=== PATIENT | male | born 1965 | race Caucasian/White ===

== ENCOUNTER 2020-04-18 16:52 | Observation (INO) | payer BC, SELFPAY ==
--- NOTE | ~2020-04-18 | CT_ITS ---
EXAMINATION: CT brain wo con INDICATION: Slurred speech and left-sided weakness COMPARISON: None TECHNIQUE: Standard unenhanced head CT. The dose-length product (DLP) was 605.33 mGy-cm. The mA was a djusted according to patient size. Iterative reconstruction technique was employed. FINDINGS: There is no intracranial hemorrhage, acute infarction, or abnormal mass lesion. The ventric les are normal. There is no abnormal mass effect or midline shift. The pan-white matter differentiat ion is normal. The basal cisterns are patent. The orbits are normal. Intracranial calcified cerebral atherosclerosis is noted. The paranasal sinuses, mastoids and calvarium are normal. IMPRESSION: 1. No acute intracranial abnormality. Reviewed, dictated and finalized at location A.
--- NOTE | ~2020-04-18 | MR_ITS ---
EXAMINATION: MR cervical spine wo con EXAM DATE: 04/19/2020 07:40 INDICATION: Neck pain. Left arm weakness. TECHNIQUE: Multi-sequential, multiplanar MR images of the cervical spine were obtained without contra st. Axial T2, axial T2 MERGE sequence. Sagittal T1, T2, T2 fat saturation images also obtained. Th ere is no prior study for comparison. FINDINGS: There is moderate disc disease at C5-6. The vertebral bodies are aligned in the AP dimensi on. There are no suspicious marrow signal abnormalities. The spinal cord signal intensity and intrins ic morphology is normal. The spinal cord signal intensity and intrinsic morphology is normal. Cervica l Paraspinal soft tissue is unremarkable. Level by level evaluation: C2-C3: Disc does not extend beyond the endplate margin. Uncovertebral joint arthropathy: Mild bilateral. Facet joint arthropathy: Moderate to severe left, mild right. Neural foraminal stenosis: No stenosis. Central canal stenosis: No stenosis. C3-C4: Disc does not extend beyond the endplate margin. Uncovertebral joint arthropathy: Mild to moderate right, mild left. Facet joint arthropathy: Mild to moderate bilateral. Neural foraminal stenosis: Mild right. Central canal stenosis: No stenosis. C4-C5: There is a minimal diffuse disc bulge. Uncovertebral joint arthropathy: Mild to moderate bilateral. Facet joint arthropathy: Mild to moderate bilateral. Neural foraminal stenosis: No stenosis. Central canal stenosis: No stenosis. C5-C6: There is a mild diffuse disc bulge. Uncovertebral joint arthropathy: Moderate bilateral. Facet joint arthropathy: Mild to moderate bilateral. Neural foraminal stenosis: Moderate right, mild to moderate left. Central canal stenosis: Mild. C6-C7: There is a minimal diffuse disc bulge. Uncovertebral joint arthropathy: Mild to moderate bilateral. Facet joint arthropathy: Mild bilateral. Neural foraminal stenosis: No stenosis. Central canal stenosis: No stenosis. C7-T1: Disc does not extend beyond the endplate margin. Uncovertebral joint arthropathy: Mild bilateral. Facet joint arthropathy: Mild bilateral. Neural foraminal stenosis: No stenosis. Central canal stenosis: No stenosis. IMPRESSION: 1. Moderate cervical spondylosis at C5-6. Reviewed, dictated and finalized at location A.
--- NOTE | ~2020-04-18 | XR_ITS ---
EXAMINATION: XR chest 1V portable INDICATION: Slurred speech and left-sided numbness TECHNIQUE: Portable AP chest at 1715 hours COMPARISON: None available FINDINGS: The lungs are free of acute opacities. There is no pleural effusion or pneumothorax. The ca rdiomediastinal silhouette is normal. The visualized bones and soft tissues are unremarkable. IMPRESSION: 1. No acute cardiopulmonary abnormality. Reviewed, dictated and finalized at location A.
--- NOTE | ~2020-04-18 | MR_ITS ---
EXAMINATION: MR brain/brain stem wo/w con EXAM DATE: 04/19/2020 07:45 INDICATION: Left-sided hemiparesis. Slurred speech TECHNIQUE: Magnetic resonance imaging (MRI) of the brain/brain stem obtained without contrast. Sagit codie T1, axial diffusion, gradient echo (T2*), T1, T2, FLAIR sequences obtained. Patient was then inj ected with 20 cc intravenous Multihance contrast. Axial and coronal postcontrast T1 weighted sequence s obtained. Correlation is made to yesterday's CTA. FINDINGS: There is acute lacunar infarction in the right basal ganglia. There is no acute hemorrhage seen on the T2*, a hemosiderin sensitive sequence. No intraparenchymal brain mass lesion. There is m ild periventricular and subcortical T2/FLAIR signal hyperintensity, nonspecific but probably related to small vessel ischemic disease (microangiopathy). There is mild prominence of the sulci and ventr icles related to cerebral atrophy. There are no extra-axial collections. Flow voids are seen in th e cerebral arteries on the T2-weighted sequences consistent with their expected patency. The orbits are unremarkable. Soft tissue is unremarkable. There are no areas of abnormal enhancement on the po stcontrast images. IMPRESSION: 1. Acute right basal ganglia lacunar infarction. 2. Chronic age related findings. Reviewed, dictated and finalized at location A.
--- NOTE | ~2020-04-18 | CT_ITS ---
EXAMINATION: CTA brain carotid DATE: 04/18/2020 18:11 INDICATION: Left-sided weakness TECHNIQUE: Computed tomographic angiography (CTA) of the head was performed without and with 100 mL O mnipaque-350 intravenous contrast. CTA of the neck was performed with intravenous contrast. The dose- length product was 1212.07 mGy-cm. Maximum intensity projection and volume rendered 3D-reconstruction s were created by the technologist on a separate workstation. Automated exposure control and iterativ e reconstruction technique were employed. COMPARISON: None. FINDINGS: HEAD CTA: There is no intracranial hemorrhage, acute infarction, or abnormal mass lesion. The ventric les are normal. There is no abnormal mass effect or midline shift. The pan-white matter differentiat ion is normal. The basal cisterns are patent. The orbits are normal. Intracranial calcified cerebral atherosclerosis is noted. The paranasal sinuses, mastoids and calvarium are normal. There is no significant stenosis of the basilar artery or posterior cerebral arteries. There is no si gnificant stenosis of the intracranial internal carotid arteries or the anterior or middle cerebral a rteries. The anterior communicating artery and posterior communicating arteries are normal. There is no aneurysm. NECK CTA: The thyroid gland is unremarkable. The submandibular and parotid glands are symmetric. Ther e is no lymphadenopathy. There are no masses identified. The airway is unremarkable. There are no oss eous abnormalities. The superior mediastinum is unremarkable. Severe spondylosis is noted at C5-6. There is 0% stenosis of the proximal right internal carotid artery relative to normal distal artery l umen diameter (NASCET criteria). There is 0% stenosis of the proximal left internal carotid artery re lative to normal distal artery lumen diameter. IMPRESSION: 1. No acute intracranial abnormality. Normal head CTA. 2. 0% stenosis of the proximal right internal carotid artery relative to normal distal artery lumen d iameter (NASCET criteria). 3. 0% stenosis of the proximal left internal carotid artery relative to normal distal artery lumen di ameter. Reviewed, dictated and finalized at location A. IMPRESSION: 1. No acute intracranial abnormality. Normal head CTA. 2. 0% stenosis of the proximal right internal carotid artery relative to normal distal artery lumen diameter (NASCET criteria). 3. 0% stenosis of the proximal left internal carotid artery relative to normal distal artery lumen diameter.
--- NOTE | 2020-04-18 16:55 | ECG_ITS ---
Measurements Intervals [place] Rate: 83 P: 33 OK: 152 QRS: 33 QRSD: 85 T: 38 QT: 362 QTc: 427 Interpretive Statements SINUS RHYTHM EARLY PRECORDIAL R/S TRANSITION BASELINE WANDER- V2-V5 BORDERLINE ECG Electronically Signed On 04-18-2020 19:31:58 CDT by Addison Hobson D.O.
[2020-04-18 17:02] LABS: Glucose Point of Care 251 (65-105)
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
[2020-04-18 17:07] VITALS: BP 194/120; PULSE 87; RESP 16; TEMP 36.8; O2SAT 96
[2020-04-18 17:12] LABS: Basophils Absolute Auto 0.1 K/mm3 (0.0-0.1); Basophils Percent Auto 1.1 % (0.2-1.2); Eosinophils Absolute Auto 0.2 K/mm3 (0-0.3); Eosinophils Percent Auto 2.3 % (0-4.4); Hematocrit 45.1 % (42.0-52.0); Hemoglobin 15.5 g/dL (14.0-18.0); Immature Granulocyte Absolute 0.02 K/mm3 (0.00-0.031); Immature Granulocyte Percent A 0.3 % (0-0.5); Lymphocytes Absolute Auto 1.59 K/mm3 (0.9-3.2); Lymphocytes Percent Auto 21.1 % (18.3-44.2); Mean Corpuscular HGB Conc 34.4 g/dl (32-36); Mean Corpuscular Hemoglobin 30.9 pg (26-34); Mean Platelet Volume 10.5 fl (7.4-10.4); Monocytes Absolute Auto 0.5 K/mm3 (0.1-0.6); Monocytes Percent Auto 6.1 % (2.6-8.5); Neutrophils Absolute Auto 5.2 K/mm3 (1.3-6.7); Neutrophils Percent Auto 69.1 % (45.5-73.1); Platelet Count Result 216 k/mm3 (150-375); Red Blood Count 5.01 M/mm3 (4.6-6.20); White Blood Count 7.6 K/mm3 (4.5-10.0)
[2020-04-18 17:20] LABS: INR 0.9; Prothrombin Time 11.6 Seconds (11.1-14.7)
[2020-04-18 17:21] LABS: Partial Thromboplastin Time 24.6 SECONDS (22.3-36.8)
[2020-04-18 17:24] LABS: Blood Urea Nitrogen 14 mg/dL (9-20); Calcium 9.4 mg/dL (8.4-10.2); Carbon Dioxide 24 mmol/L (22-30); Chloride 104 mmol/L (98-107); Estimated CRCL calculation 128 ml/min; Estimated Glomerular Filt Rate > 60; Glucose 260 mg/dL (75-110); Potassium 4.1 mmol/L (3.4-5.0); Sodium 135 mmol/L (137-145)
[2020-04-18 17:34] VITALS: BP 165/110; PULSE 77; RESP 16; O2SAT 95
[2020-04-18 17:35] LABS: Troponin I < 0.012 ng/mL (0.000-0.034)
[2020-04-18 18:19] VITALS: BP 171/87; PULSE 72; RESP 19; O2SAT 95
[2020-04-18 19:53] VITALS: BP 138/86; PULSE 74; RESP 18; O2SAT 98
[2020-04-18 20:00] VITALS: PULSE 73; PULSE 74; RESP 18; O2SAT 98
--- NOTE | 2020-04-18 20:09 | ADMGEN ---
This patient, Ed Mcallister, was admitted to Medical Room 342-01. Patient/family oriented to hospital policies and general routines including ID bracelet, bed and alarms, visiting hours, pain management, procedures, bathroom and other care routines, personal items, smoking policy, room service/diet, and visiting hours. Valuables list has been completed. Information on how to activate the Rapid Response Team has been discussed. Patient/Family are encouraged to report perceived risks to care and to ask questions if they do not understand what they are told or what they should do.
[2020-04-18 20:11] VITALS: BP 157/99; PULSE 73; RESP 18; TEMP 36.7; O2SAT 98
[2020-04-18 20:15] VITALS: BMI 38.2
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
[2020-04-19] VITALS (10 sets, daily range): BP systolic 123–152; BP diastolic 73–92; PULSE 64–84; RESP 18; TEMP 36–36.3; O2SAT 93–97
[2020-04-19] MEDS: NICOTINE (*PBKC) 21 MG PATCH 1 PATCH TRANSDERM ×2 (00:31→08:30)
[2020-04-19] MEDS: ASPIRIN 81 MG CHEWABLE TABLET 324 MG PO (00:31)
[2020-04-19 05:54] LABS: Alanine Aminotransferase 24 U/L (4-50); Albumin Level 3.9 g/dL (3.5-5.1); Alkaline Phosphatase 67 U/L (38-126); Aspartate Amino Transferase 19 U/L (17-59); Bilirubin,Total 0.5 mg/dL (0.2-1.3); Blood Urea Nitrogen 11 mg/dL (9-20); Calcium 8.9 mg/dL (8.4-10.2); Carbon Dioxide 27 mmol/L (22-30); Chloride 104 mmol/L (98-107); Cholesterol 244 mg/dL (0-200); Estimated CRCL calculation 144 ml/min; Estimated Glomerular Filt Rate > 60; Glucose 221 mg/dL (75-110); HDL Direct 30 mg/dL; Potassium 3.9 mmol/L (3.4-5.0); Sodium 137 mmol/L (137-145); Triglycerides 233 mg/dL (<150)
[2020-04-19 06:05] LABS: LDL Cholesterol Direct 183 mg/dL
[2020-04-19 06:10] LABS: Hemoglobin A1C 9.8 % (<5.7)
[2020-04-19] MEDS: ASPIRIN 81 MG ENTERIC TABLET PO (08:29)
[2020-04-19] MEDS: AMLODIPINE BESYLATE 5 MG TABLET 10 MG PO (08:30)
[2020-04-19] MEDS: NEBIVOLOL HCL 5 MG TABLET 30 MG PO (08:30)
[2020-04-19] MEDS: INSULIN ASPART (*BKC) 100 UNITS/ML SUB-Q ×2 (08:32→12:23)
[2020-04-19] MEDS: INSULIN GLARGINE (*BKC) 100 UNITS/ML 10 UNITS SUB-Q (08:34)
[2020-04-19] MEDS: ATORVASTATIN 40 MG TABLET 80 MG PO (08:37)
[2020-04-19 08:48] LABS: Glucose Point of Care 254 (65-105)
[2020-04-19] MEDS: lisinopriL 20 MG TABLET 40 MG PO (11:05)
--- NOTE | 2020-04-19 12:10 | PCSTNOTE ---
Bedside swallow evaluation completed. Please see evaluation results for diet and therapy recommendations.
[2020-04-19 12:12] LABS: Glucose Point of Care 232 (65-105)
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
[2020-04-19 17:56] LABS: Glucose Point of Care 162 (65-105)
--- NOTE | 2020-04-19 19:00 | WPDNEURCNPN ---
Assessment and Plan Assessment and plan (1) Cerebrovascular accident (CVA) of right basal ganglia: Code(s): I63.9 - Cerebral infarction, unspecified Status: Acute (2) Neck pain: Code(s): M54.2 - Cervicalgia Status: Acute (3) Tobacco dependence: Code(s): F17.200 - Nicotine dependence, unspecified, uncomplicated Status: Acute (4) Hyperglycemia: Code(s): R73.9 - Hyperglycemia, unspecified Status: Acute (5) Hypercholesterolemia: Code(s): E78.00 - Pure hypercholesterolemia, unspecified Status: Acute (6) Essential hypertension: Code(s): I10 - Essential (primary) hypertension Status: Acute (7) Dysarthria: Code(s): R47.1 - Dysarthria and anarthria Status: Acute (8) Facial paresthesia: Code(s): R20.2 - Paresthesia of skin Status: Acute (9) Other intervertebral disc degeneration, lumbosacral region: Code(s): M51.37 - Other intervertebral disc degeneration, lumbosacral region Status: Acute (10) Obesity (BMI 30-39.9): Code(s): E66.9 - Obesity, unspecified Status: Acute Additional Plan patient will need the PT OT evaluation and most likely an outpatient therapy 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 donovan as an outpatient when he gets discharged from here Consult date: 04/19/20 Time Seen: 18:30 HPI: Ed Mcallister is a 54 year old male who is admitted with left-sided hemiparesis which is stable since he was hospitalized he is obese he has hypertension and also is most likely newly diagnosed diabetic his neurological deficit stable which is [id number] in nature including the face arm the left leg on the left side denies any headache nausea vomiting chest pain shortness of breath The brain MRI conference the evidence of the stroke in the right basal ganglia region and the echocardiogram is pending CTA of the head and neck is unremarkable the patient is on aspirin and atorvastatin Review of Systems Review of Systems: All systems reviewed & are unremarkable except as noted in HPI and below PMFSH Past Medical History Medical History Chronic back pain On opioid therapy. Degenerative disc disease, lumbar Essential hypertension Hypercholesterolemia Obesity (BMI 30-39.9) Osteoarthritis Tobacco dependence Surgical History Surgical History History of tonsillectomy Family History Family History Mother Hypertension Kidney failure Social History Social History Social History: Surrogate decision maker: Zaida Venkatesh, friend. Code status: Full code. Smoking packs per day: 1 Smoking cigarettes per day: 20.0 Years smoked: 38 Smoking pack-years: 38.00 Smoking status: Current every day smoker Tobacco type: cigarettes Alcohol intake: never Substance use: never Additional living arrangements comments: The patient lives alone in his own home in [place]. He is not and has no children. 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 Gender identity (if verbalized by the patient): Male Spiritual care concerns: No Meds Home Medications and Allergies Home Medications Medication Instructions Recorded Confirmed Type amlodipine 10 mg tablet 10 mg PO DAILY #90 tablet 02/06/20 04/18/20 Rx benazepril 40 mg tablet 40 mg PO DAILY #90 tablet 04/06/20 04/18/20 Rx hydrocodone 7.5 mg-love
[2020-04-19 20:30] LABS: Glucose Point of Care 168 (65-105)
[2020-04-20] VITALS (9 sets, daily range): BP systolic 137–194; BP diastolic 92–121; PULSE 63–89; RESP 16–20; TEMP 36.5–36.8; O2SAT 96–98; BMI 38.2
--- NOTE | 2020-04-20 | ECHO_ITS ---
Patient Info Name: Ed Mcallister Age: 54 years : 1965 Gender: Male Ht: 73 in Wt: 289 lbs BSA: 2.65 m2 HR: 75 bpm BP: 137 / 101 mmHg Technical Quality: Fair Exam Date: 04/20/2020 8:43 AM Exam Location: [facility] Patient Status: Outpatient Admit Date: 04/18/2020 Staff Ordering Physician: Ana Lee PA-C Gas Meter Reader: Fidencio Ruiz RDCS, RT Attending Provider: Sara Phillips PA-C Referring Physician: Rosa POOLE; Exam Type: CA echo doppler color flow Study Info Indications I10 - Essential (primary) hypertension Complete two-dimensional, color flow and Doppler transthoracic echocardiogram is performed. Summary 1. Left ventricular chamber dimension is normal. 2. Left ventricular systolic function is normal, estimated at 55-60%. 3. The left ventricular diastolic function is grade I diastolic dysfunction. 4. E/e' 7 is not elevated. 5. Small atheroma in posterior aortic root. Left Ventricle E/e' 7 is not elevated. Left ventricular chamber dimension is normal. Left ventricular systolic function is normal, estimated at 55-60%. The left ventricular diastolic function is grade I diastolic dysfunction. Right Ventricle Right ventricular chamber dimension is normal. Right ventricular systolic function is normal. Left Atria Left atrial chamber dimension is normal. Right Atria Right atrial chamber dimension is normal. Aortic Valve The aortic valve is trileaflet. There is no aortic valve stenosis. There is no aortic valve regurgitation. Pulmonic Valve There is no pulmonic regurgitation. Mitral Valve There is no mitral valve stenosis. There is no mitral valve regurgitation. Tricuspid Valve There is no tricuspid valve regurgitation. Pericardium/Pleural There is no pericardial effusion. Inferior Vena Cava Normal inferior vena cava with >50% collapse upon inspiration consistent with normal right atrial pressure, 5 mmHg. Aorta Small atheroma in posterior aortic root. The aortic root size at the sinus of Valsalva is normal. Left Ventricular Outflow Tract Name Value Normal LVOT 2D LVOT Diameter 2.1 cm LVOT Doppler LVOT Peak Gradient 4 mmHg LVOT Mean Gradient 2 mmHg LVOT VTI 21 cm LVOT VTI/AV VTI Ratio 0.9 LVOT Stroke Volume 77 ml LVOT CO 6.3 l/min LVOT CI 2.4 l/min/m2 Pulmonic Valve Name Value Normal PV Doppler PV Peak Gradient 5 mmHg Mitral Valve Name Value Normal MV Doppler -----
[2020-04-20] MEDS: ACETAMINOPHEN 325 MG TABLET 650 MG PO (05:26)
[2020-04-20 07:53] LABS: Glucose Point of Care 233 (65-105)
[2020-04-20] MEDS: ATORVASTATIN 40 MG TABLET 80 MG PO (08:37)
[2020-04-20] MEDS: AMLODIPINE BESYLATE 5 MG TABLET 10 MG PO (08:37)
[2020-04-20] MEDS: ASPIRIN 81 MG ENTERIC TABLET PO (08:37)
[2020-04-20] MEDS: lisinopriL 20 MG TABLET 40 MG PO (08:38)
[2020-04-20] MEDS: NICOTINE (*PBKC) 21 MG PATCH 1 PATCH TRANSDERM (08:38)
[2020-04-20] MEDS: INSULIN GLARGINE (*BKC) 100 UNITS/ML 10 UNITS SUB-Q (09:53)
[2020-04-20] MEDS: INSULIN ASPART (*BKC) 100 UNITS/ML SUB-Q (09:54)
[2020-04-20] MEDS: NEBIVOLOL HCL 5 MG TABLET 30 MG PO (09:55)
--- NOTE | 2020-04-20 10:26 | WPDNEUROPN ---
Progress Note: A&P Assessment and Plan (1) Cerebrovascular accident (CVA) of right basal ganglia: Code(s): I63.9 - Cerebral infarction, unspecified Status: Acute (2) Neck pain: Code(s): M54.2 - Cervicalgia Status: Acute (3) Tobacco dependence: Code(s): F17.200 - Nicotine dependence, unspecified, uncomplicated Status: Acute (4) Hyperglycemia: Code(s): R73.9 - Hyperglycemia, unspecified Status: Acute (5) Neurological symptoms: Code(s): R29.90 - Unspecified symptoms and signs involving the nervous system Status: Acute (6) Hypercholesterolemia: Code(s): E78.00 - Pure hypercholesterolemia, unspecified Status: Acute (7) Essential hypertension: Code(s): I10 - Essential (primary) hypertension Status: Acute (8) Dysarthria: Code(s): R47.1 - Dysarthria and anarthria Status: Acute (9) Facial paresthesia: Code(s): R20.2 - Paresthesia of skin Status: Acute (10) Left arm weakness: Code(s): R29.898 - Other symptoms and signs involving the musculoskeletal system Status: Acute (11) Other intervertebral disc degeneration, lumbosacral region: Code(s): M51.37 - Other intervertebral disc degeneration, lumbosacral region Status: Acute (12) Obesity (BMI 30-39.9): Code(s): E66.9 - Obesity, unspecified Status: Acute Additional Plan stable will need speech therapy Exam Const: General: cooperative, comfortable and no acute distress Limitations: no limitations HENMT: Head: normal to inspection Face and sinus: normal facial exam Mouth: Yes Normal oral and palatal mucosa present Eyes: General: appearance normal, both eyes and all related structures Neck: Neck: full ROM Resp: Effort & Inspection: normal respiratory effort and able to speak in complete sentences Auscultation: clear to auscultation bilaterally Cardio: Rate: regular rate Rhythm: regular rhythm GI: Auscultation: normal bowel sounds Skin: General skin exam: no rashes or lesions noted Neuro: General: patient oriented x3, gait normal and moves all extremities Cranial nerves: Yes facial symmetry (assymmetrical) and Yes Midline tongue present Cognition (Neuro): normal cognition Gait exam (Neuro): Normal gait present Motor exam (neuro): Abnormal motor strength present Extrem: General: full ROM Psych: Appearance: grossly normal Objective Data Vital Signs Vital Signs: Vital Signs - 24 hr 04/19/20 12:00 04/19/20 14:00 04/19/20 16:00 Temperature 36.3 C L Pulse Rate 75 65 67 Respiratory Rate 18 Blood Pressure 148/92 H Pulse Oximetry 95 04/19/20 20:00 04/19/20 21:53 04/20/20 00:00 Temperature 36.0 C L Pulse Rate 79 69 67 Respiratory Rate 18 Blood Pressure 123/73 Pulse Oximetry 93 04/20/20 04:00 04/20/20 04:54 04/20/20 09:55 Temperature 36.5 C Pulse Rate 63 66 81 Respiratory Rate 18 Blood Pressure 137/101 H Pulse Oximetry 96 04/20/20 09:58 Temperature Pulse Rate 81 Respiratory Rate 16 Blood Pressure 194/102 H Pulse Oximetry 96 Intake/Output Intake/Output: Intake & Output 04/17/20 04/18/20 04/19/20 04/20/20 23:59 23:59 23:59 23:59 Intake Total 1820 240 Output Total 1200 200 Balance 620 40 Meds/Results Medications: Active Medications Generic Name Dose Route Start Last Admin Trade Name Freq PRN Reason Stop Dose Admin Acetaminophen 650 mg 04/18/20 18:43 04/20/20 05:26 Tylenol Tablet PO 650 mg Q4H PRN Administration Mild Pain (1-3) or Fever Hydrocodone Bitart/Acetaminophen 1 tab 04/19/20 12:00 04/20/20 08:37 Eckley 7.5-325 Mg PO 1 tab 0800,1200,1600,2000 YULIANA Administration Amlodipine Besylate 10 mg 04/19/20 09:00 04/20/20 08:37 Norvasc PO 10 mg DAILY YULIANA Administration Aspirin 81 mg 04/19/20 09:00 04/20/20 08:37 Aspirin Ec PO 81 mg QAM YULIANA Administration Atorvastatin Calcium 80 mg 04/19
--- NOTE | 2020-04-20 11:25 | PCDIET ---
Physician Consult for New Onset of Diabetes. See Nutritional Teaching Intervention. Thank you for the consult. No further nutritional interventions.
[2020-04-20 11:43] LABS: Glucose Point of Care 164 (65-105)
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
== END 2020-04-20 15:55 | disposition home or self-care (01) ==
LOC: ANHED 18:49 → ANH3MED 19:16
PROVIDERS: Physician Assistant; Admitting Provider Family Medicine; Emergency Provider Emergency Medicine; PCP Family Medicine; Visit Provider Physician Assistant
DX: I63.9 Cerebral infarction, unspecified (principal); G81.94 Hemiplegia, unspecified affecting left nondominant side; R20.0 Anesthesia of skin; R47.81 Slurred speech; R40.2412 Glasgow coma scale score 13-15, at arrival to emergency department; E11.9 Type 2 diabetes mellitus without complications; I10 Essential (primary) hypertension; M54.2 Cervicalgia; M47.892 Other spondylosis, cervical region; M51.37 Other intervertebral disc degeneration, lumbosacral region; V49.40XA Driver injured in collision with unspecified motor vehicles in traffic accident, initial encounter; F17.210 Nicotine dependence, cigarettes, uncomplicated; E66.9 Obesity, unspecified; Z68.38 Body mass index [BMI] 38.0-38.9, adult
CPT/HCPCS: 36415; 70450; 70496; 70498; 70553; 71045; 72141; 80048; 80053; 80061; 82607; 82948; 83036; 84484; 85025; 85610; 85730; 92507; 92610; 93005; 93306; 97161; 97165; 99285; A9270; A9577; G0378; G0379; J1815; Q9967

== ENCOUNTER 2020-07-03 13:30 | Outpatient (RCR) | payer BC, SELFPAY ==
--- NOTE | 2020-05-14 09:59 | OTOPEVAL ---
OCCUPATIONAL THERAPY INITIAL EVALUATION 05/14/2020 Thank you for referring Ed Mcallister to [facility]. Skilled OT indicated 2x/week for 4 weeks for deficits described below. Please review, sign, date and return this plan of care ASHLEY. I agree with and certify that the following plan of care is medically necessary. Referring Physician Date Referring Provider: Jose A Gutiérrez MD *OT Outpatient Evaluation Therapy Assessment Status Assessment Status Assessment Status Evaluation Outpatient Past Medical History Neurological History Hx Cerebrovascular Accident (CVA) Yes: 04/18/20 Cardiovascular History Hx Hypercholesterolemia Yes Hx Hypertension Yes Respiratory History Hx Respiratory Disorders No Significant History Gastrointestinal History Hx Gastrointestinal Disorders No Significant History Genitourinary History Hx Genitourinary Disorders No Significant History Musculoskeletal History Hx Arthritis Yes Hx Back Injury Yes Hx Back Pain Yes Hematological History Hx Hematological Disorders No Significant History HEENT History Hx Tonsillectomy Yes Integumentary History Hx Skin Disorders No Significant History Reproductive History Hx Reproductive Disorders No Significant History Psychosocial History Hx Psychiatric Disorders No Significant History Pain History History of Any Previous or Ongoing No Significant History Instance of Pain Anesthesia History Hx Anesthesia Reactions No Significant History Evaluation Information Problem Diagnosis s/p CVA with left sided weakness Onset 04/18/2020 Subjective Information Patient went to the ED with Query Text:As Reported By Patient/ slurred speech and left sided Family weakness. He states that the weakness resolved and he was doing well in the hospital, was discharged two days later, and his left hand started to get worse. 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
--- NOTE | 2020-05-15 11:10 | STOPEVAL ---
Speech Therapy Initial Evaluation/Discharge: Thank you for referring Ed Mcallister to [facility]. Upon completion of the speech evaluation, it has been determined that no further skilled speech therapy is warranted. Please review, sign, date and return this evaluation/discharge ASHLEY. I agree with and certify that the following plan of care is medically necessary. Referring Physician Date Attending Provider: Jose A Gutiérrez MD *ST Outpatient Evaluation/Discharge Start: 05/15/20 10:58 Freq: Status: Active Protocol: Document 05/14/20 10:00 [email or web address] (Rec: 05/15/20 11:09 BECHERERT [email or web address]) Therapy Assessment Status Assessment Status Assessment Status Evaluation Outpatient Past Medical History Past Medical History Source of Past Medical History Patient Neurological History Hx Cerebrovascular Accident (CVA) Yes: 04/18/20 Cardiovascular History Hx Hypercholesterolemia Yes Hx Hypertension Yes Respiratory History Hx Respiratory Disorders No Significant History Gastrointestinal History Hx Gastrointestinal Disorders No Significant History Genitourinary History Hx Genitourinary Disorders No Significant History Musculoskeletal History Hx Arthritis Yes Hx Back Injury Yes Hx Back Pain Yes Hematological History Hx Hematological Disorders No Significant History HEENT History Hx Tonsillectomy Yes Integumentary History Hx Skin Disorders No Significant History Reproductive History Hx Reproductive Disorders No Significant History Psychosocial History Hx Psychiatric Disorders No Significant History Pain History History of Any Previous or Ongoing No Significant History Instance of Pain Anesthesia History Hx Anesthesia Reactions No Significant History Pain Assessment Timing of Pain Assessment Timing of Pain Assessment Assessment Self Report Self Report Pain Level 0 Pain Score Pain Score 0: Self Report Dysarthria Evaluation Oral-Motor Assessment Lip Structure Asymmetrical Lip Protrusion Direction WNL,Range Reduced, Strength Reduced Lip Lateralization Direction WNL,Strength WNL, Range Reduced,Strength Reduced Lip Compression Rate WNL,Strength WNL Lip Comments pt denied having any oral leakage while eating or drinking Temporomandibular Joint Description Normal Teeth Condition Missing Teeth Mouth Occlusion Normal Oropharynx Condition Landmarks WNL Soft Palate Elevation Range WNL,Rate WNL,Strength WNL Soft Palate Tone
--- NOTE | 2020-06-10 15:40 | OTOPEVAL ---
OCCUPATIONAL THERAPY RE-EVALUATION REPORT 06/10/2020 Thank you for referring Ed Mcallister to [facility].?Ed is progressing well with therapy and will benefit from continued services. The patient is scheduled to be seen for therapy?2x/week for 3 weeks. Please review, sign, date and return this plan of care ASHLEY. I agree with and certify that the following plan of care is medically necessary. Referring Physician Date Referring Provider: Jose A Gutiérrez MD Evaluation Information Problem Diagnosis s/p CVA with left sided weakness Onset 04/18/2020 Additional Evaluation Detail Ed has participated in 9 outpatient OT treatment sessions since 05/14/20 for left sided weakness and incoordination. He is motivated and compliant with all materials. Subjective Information Ed reports improved ability Query Text:As Reported By Patient/ to tie shoes, button, and use Family the left hand to carry heavy objects. He states that he has concerns about returning to work, but does report that he has made progress. He reports fatiguing easily and that his arm is slow . Pain Assessment Timing of Pain Assessment Timing of Pain Assessment Re-assessment Self Report Self Report Pain Level 0 Pain Score Pain Score 0: Self Report Upper Extremity Range of Motion General Upper Extremity Range of Motion Gross Upper Extremity Range of Motion (L) UE AROM is WNL. Comments Upper Extremity Muscle Strength Testing Scapular/Shoulder Left Shoulder Flexion Strength 4 Good Shoulder Extension Strength 4+ Good + Shoulder Abduction Strength 4- Good - Shoulder Adduction Strength 4+ Good + Shoulder Medial Rotation Strength 4+ Good + Shoulder Lateral Rotation Strength 4 Good Shoulder Strength Comments (L) shoulder improved from being 4-/5 grossly. Elbow/Forearm Left Elbow Flexion Strength 4+ Good + Elbow Extension Strength 4+ Good + Forearm Pronation Strength 4+ Good + Forearm Supination Strength 4+ Good + Elbow/Forearm Strength Comments (L) elbow improved from being 4/5 grossly. Wrist Strength Left Wrist Flexion Strength 4 Good Wrist Extension Strength 4+ Good + Wrist Strength Comments (L) wrist extension improved from 4/5. (L) wrist flexion remained at 4/5. Hand Controller [employer]/Pinch Strength Assessment Hand Left
--- NOTE | 2020-07-03 14:13 | OTOPEVAL ---
OCCUPATIONAL THERAPY DISCHARGE NOTE 07/03/2020 Thank you for referring Ed Mcallister to [facility]. At this time Ed has progressed to functional strength and coordination of the left UE and is independent with all instructed materials. Strongly recommend that he continues to work on his HEP and work-related tasks at home to continue to work on functional endurance. He verbalizes good understanding of is HEP and endurance-building schedule he plans to work on each day at home. Discharging today with goals met. Please sign and return this D/C summary ASHLEY. I agree with and certify that the following plan of care is medically necessary. Referring Physician Date Referring Provider: Jose A Gutiérrez MD Re-Evaluation Information Problem Diagnosis s/p CVA with left sided weakness Onset 04/18/2020 Additional Evaluation Detail Ed has participated in 15 outpatient OT treatment sessions since 05/14/20 for left sided weakness and incoordination. He is motivated and compliant with all materials. Subjective Information Ed reports improved ability Query Text:As Reported By Patient/ with fine and gross motor Family tasks. He continues to note that fatigue is limiting, but he has been trying to push himself to work as much as possible as rest when he needs to. Pain Assessment Timing of Pain Assessment Timing of Pain Assessment Assessment Self Report Self Report Pain Level 0 Pain Score Pain Score 0: Self Report Upper Extremity Range of Motion General Upper Extremity Range of Motion Gross Upper Extremity Range of Motion (L) UE AROM is WNL. Comments Upper Extremity Muscle Strength Testing Scapular/Shoulder Left Shoulder Flexion Strength 4+ Good + Shoulder Extension Strength 4+ Good + Shoulder Abduction Strength 4+ Good + Shoulder Adduction Strength 4+ Good + Shoulder Medial Rotation Strength 4+ Good + Shoulder Lateral Rotation Strength 4 Good Shoulder Strength Comments (L) shoulder improved to normal limits Elbow/Forearm Left Elbow Flexion Strength 5 Normal Elbow Extension Strength 5 Normal Forearm Pronation Strength 5 Normal Forearm Supination Strength 5 Normal Elbow/Forearm Strength Comments (L) elbow improved to normal limits. Wrist Strength Left Wrist Flexion Strength 4+ Good + Wrist Extension Strength 4+ Good + Wrist Strength Comments (L) wrist improved to normal limits. Hand Social Work Program Coordinator/Pi
== END 2020-07-06 08:11 | disposition home or self-care (01) ==
LOC: ANHOT 13:30
PROVIDERS: PCP Family Medicine; Visit Provider Family Medicine
DX: I63.9 Cerebral infarction, unspecified (principal); R47.1 Dysarthria and anarthria
CPT/HCPCS: 92522; 97110; 97165